=== PATIENT | female | born 1950 | race Caucasian/White ===

== ENCOUNTER 2021-10-03 07:52 | Outpatient (CLI) | payer MEDICARE | END 2021-10-03 07:53 | disposition home or self-care (01) | LOC: SCSMRI 07:52 | PROVIDERS: ATTEND Internal Medicine Gastroenterology | DX: K22.2 Esophageal obstruction (principal); R79.89 Other specified abnormal findings of blood chemistry; R10.11 Right upper quadrant pain; R13.14 Dysphagia, pharyngoesophageal phase; K86.89 Other specified diseases of pancreas; K76.0 Fatty (change of) liver, not elsewhere classified; M48.04 Spinal stenosis, thoracic region; N28.1 Cyst of kidney, acquired | CPT/HCPCS: 74183; 82565 ==